=== PATIENT | female | born 1950 | race Caucasian/White ===

== ENCOUNTER 2018-10-01 13:31 | Emergency (ER) | payer OTHER ==
--- NOTE | 2018-10-01 16:14 | EDPHYS ---
Physician Documentation [facility] Name: Idania Gabriel Age: 67 yrs Sex: Female : 1950 Arrival Date: 10/01/2018 Time: 13:32 Bed 14 Private MD: Unknown, Unknown ED Physician Al Godoy HPI: 10/01 16:11 This 67 yrs old Female presents to ER via Ambulatory with complaints of Right pm1 sided facial swelling. Historical: - Allergies: 13:45 Darvocet-N 100; sv - PSHx: 13:45 Hysterectomy; left leg; Cholecystectomy; sv - Immunization history:: Flu vaccine is up to date. - Social history:: Smoking status: Patient uses tobacco products, smokes one-half pack cigarettes per day. ROS: 16:11 Constitutional: Negative for fever, chills, and weight loss, Eyes: Negative for injury, pm1 pain, redness, and discharge, Neck: Negative for injury, pain, and swelling, Cardiovascular: Negative for chest pain, palpitations, and edema, Respiratory: Negative for shortness of breath, cough, wheezing, and pleuritic chest pain, Abdomen/GI: Negative for abdominal pain, nausea, vomiting, diarrhea, and constipation, Back: Negative for injury and pain, MS/Extremity: Negative for injury and deformity. 16:11 Neuro: Negative for headache, weakness, numbness, tingling, and seizure. 16:11 ENT: Negative for ear pain, sinus pain, sore throat, dental pain, difficulty swallowing, difficulty handling secretions, hoarseness. 16:11 Skin: Positive for swelling, of the right zygomatic area. Exam: 16:11 Constitutional: This is a well developed, well nourished patient who is awake, alert, pm1 and in no acute distress. Head/Face: Normocephalic, atraumatic. Eyes: Pupils equal round and reactive to light, extra-ocular motions intact. Lids and lashes normal. Conjunctiva and sclera are non-icteric and not injected. Cornea within normal limits. Periorbital areas with no swelling, redness, or edema. ENT: Nares patent. No nasal discharge, no septal abnormalities noted. Tympanic membranes are normal and external auditory canals are clear. Oropharynx with no redness, swelling, or masses, exudates, or evidence of obstruction, uvula midline. Mucous membranes moist. Neck: Trachea midline, no thyromegaly or masses palpated, and no cervical lymphadenopathy. Supple, full range of motion without nuchal rigidity, or vertebral point tenderness. No Meningismus. Chest/axilla: Normal chest wall appearance and motion. Nontender with no deformity. No lesions are appreciated. Cardiovascular: Regular rate and rhythm with a normal S1 and S2. No gallops, murmurs, or rubs. Normal PMI, no JVD. No pulse deficits. Respiratory: Lungs have equal breath sounds bilaterally, clear to auscultation and percussion. No rales, rhonchi or wheezes noted. No increased work of breathing, no retractions or nasal flaring. Abdomen/GI: Soft, non-tender, with normal bowel sounds. No distension or tympany. No guarding or rebound. No evidence of tenderness throughout. Back: No spinal tenderness. No costovertebral tenderness. Full range of motion. 16:11 MS/ Extremity: Pulses equal, no cyanosis. Neurovascular intact. Full, normal range of motion. 16:11 Skin: Appearance: normal except for affected area, abscess, not appreciated, cellulitis, that is minimal, on the right zygomatic area. 16:11 Neuro: Orientation: is normal, Motor: is normal, moves all fours. Vital Signs: 13:45 BP 176 / 104; Pulse 108; Resp 22; Temp 97.8; Pulse Ox 96% ; Weight 79.38 kg; Height 6 sv ft. 0 in. (182.88 cm); Pain 8/10; 15:27 BP 154 / 84; Pulse 92; Resp 18 S; Pulse Ox 94% on R/A; Pain 10/10; jl7 13:45 Body Mass Index 23.73 (79.38 kg, 182.88 cm) sv MDM: 14:48 Patient medically screened. pm1 16:11 Data reviewed: vital signs. Counseling: I had a detailed discussion with the patient pm1 and/or guardian regarding: the historical points, exam findings, and any diagnostic results supporting the discharge/admit diagnosis, the need for outpatient follow up, to return to the emergency department if symptoms worsen or persist or if there are any questions or concerns that arise at home. Administered Medications: 16:29 Drug: traMADol 50 mg Route: PO; jl7 17:50 Follow up: Response: No adverse reaction; Pain is decreased aa5 17:20 Drug: Clindamycin 600 mg {Note: administered 300mg to right gluteus and 300mg to left aa5 gluteus. .} Route: IM; Site: right gluteus; 17:50 Follow up: Response: No adverse reaction aa5 Disposition: 10/01/18 16:13 Discharged to Home. Impression: Cellulitis of face. - Condition is Stable. - Discharge Instructions: Cellulitis, Adult. - Prescriptions for Clindamycin HCl 300 mg Oral Capsule - take 1 capsule by ORAL route every 6 hours for 10 days; 40 capsule. Tramadol 50 mg Oral Tablet - take 1 tablet by ORAL route every 8 hours as needed; 12 tablet. - Medication Reconciliation Form, Thank You Letter, Antibiotic Education, Prescription Opioid Use form. - Follow up: Emergency Department; When: As needed; Reason: Worsening of condition. Follow up: Private Physician; When: 2 - 3 days; Reason: Recheck today's complaints, Continuance of care, Re-evaluation by your physician. - Problem is new. - Symptoms have improved. Addendum: 10/04/2018 07:45 Co-signature as Attending Physician, Al Godoy MD I agree with the assessment and k dr plan of care. Signatures: Kindra Acuña, RN RN Al Hampton MD MD [facility] Shantell Szymanski RN RN aa5 Carlos Alberto Watson, ANNAMARIA WING MAILER MACHINE OPERATOR pm1 Samuel Brothers RN RN jl7 Corrections: (The following items were deleted from the chart) 10/01 17:52 16:13 10/01/2018 16:13 Discharged to Home. Impression: Cellulitis of face. Condition is aa5 Stable. Forms are Medication Reconciliation Form, Thank You Letter, Antibiotic Education, Prescription Opioid Use. Follow up: Emergency Department; When: As needed; Reason: Worsening of condition. Follow up: Private Physician; When: 2 - 3 days; Reason: Recheck today's complaints, Continuance of care, Re-evaluation by your physician. Problem is new. Symptoms have improved. pm1
--- NOTE | 2018-10-01 16:14 | ER ---
Nurse's Notes [facility] Name: Idania Gabriel Age: 67 yrs Sex: Female : 1950 Arrival Date: 10/01/2018 Time: 13:32 Bed 14 Private MD: Unknown, Unknown Diagnosis: Cellulitis of face Presentation: 10/01 13:43 Presenting complaint: Patient states: right side facial swelling, pressure and pain x 2 sv days. Transition of care: patient was not received from another setting of care. Onset of symptoms was September 29, 2018. Care prior to arrival: Medication(s) given: Tylenol, 1000 mg, 1200. 13:43 Method Of Arrival: Ambulatory sv 13:43 Acuity: DANIELLE 3 sv Triage Assessment: 13:46 General: Appears in no apparent distress. uncomfortable, Behavior is calm, cooperative, sv appropriate for age. Pain: Complains of pain in right eye, right cheek and nose Pain currently is 8 out of 10 on a pain scale. Neuro: Level of Consciousness is awake, alert, obeys commands, Oriented to person, place, time, situation, Gait is steady. Respiratory: Respiratory effort is even, unlabored, Respiratory pattern is regular, symmetrical. Musculoskeletal: Swelling present in right zygomatic area and right side of the nose. Historical: - Allergies: 13:45 Darvocet-N 100; sv - PSHx: 13:45 Hysterectomy; left leg; Cholecystectomy; sv - Immunization history:: Flu vaccine is up to date. - Social history:: Smoking status: Patient uses tobacco products, smokes one-half pack cigarettes per day. Screenin:27 Abuse screen: Denies threats or abuse. Denies injuries from another. Nutritional jl7 screening: No deficits noted. Tuberculosis screening: No symptoms or risk factors identified. Fall Risk None identified. Assessment: 14:00 General: Appears in no apparent distress. uncomfortable, Behavior is calm, cooperative, jl7 appropriate for age. Pain: Complains of pain in right cheek Pain does not radiate. Pain currently is 10 out of 10 on a pain scale. Quality of pain is described as throbbing, Pain began 2-3 days ago. Is continuous. Neuro: Level of Consciousness is awake, alert, obeys commands, Oriented to person, place, time, situation. Cardiovascular: Patient's skin is warm and dry. Respiratory: Airway is patent Respiratory effort is even, unlabored, Respiratory pattern is regular, symmetrical. GI: No signs and/or symptoms were reported involving the gastrointestinal system. : No signs and/or symptoms were reported regarding the genitourinary system. EENT: Nares are clear. Derm: Skin is pink, warm \T\ dry. Musculoskeletal: Swelling present in right cheek. 17:50 Reassessment: Patient is alert, oriented x 3, equal unlabored respirations, skin aa5 warm/dry/pink. Patient states feeling better. Vital Signs: 13:45 BP 176 / 104; Pulse 108; Resp 22; Temp 97.8; Pulse Ox 96% ; Weight 79.38 kg; Height 6 sv ft. 0 in. (182.88 cm); Pain 8/10; 15:27 BP 154 / 84; Pulse 92; Resp 18 S; Pulse Ox 94% on R/A; Pain 10/10; jl7 13:45 Body Mass Index 23.73 (79.38 kg, 182.88 cm) sv ED Course: 13:32 Patient arrived in ED. ag5 13:32 Unknown, Unknown is Private Physician. ag5 13:44 Triage completed. sv 13:46 Arm band placed on Patient placed in waiting room, Patient notified of wait time. sv 14:47 Carlos Alberto Watson NP is PHCP. pm1 14:47 Al Godoy MD is Attending Physician. pm1 14:49 Samuel Brothers RN is Primary Nurse. jl7 15:27 Patient has correct armband on for positive identification. Bed in low position. Call jl7 light in reach. Side rails up X 1. Pulse ox on. NIBP on. Administered Medications: 16:29 Drug: traMADol 50 mg Route: PO; jl7 17:50 Follow up: Response: No adverse reaction; Pain is decreased aa5 17:20 Drug: Clindamycin 600 mg {Note: administered 300mg to right gluteus and 300mg to left aa5 gluteus. .} Route: IM; Site: right gluteus; 17:50 Follow up: Response: No adverse reaction aa5 Outcome: 16:13 Discharge ordered by . pm1 17:50 Discharged to home ambulatory. aa5 17:50 Condition: improved 17:50 Discharge instructions given to patient, Instructed on discharge instructions, follow up and referral plans. medication usage, Demonstrated understanding of instructions, follow-up care, medications, Prescriptions given X 2. 17:52 Patient left the ED. aa5 Signatures: Kindra Acuña RN RN sv Shantell Szymanski RN RN aa5 Carlos Alberto Watson, PATTERN DRUM MAKER PATTERN DRUM MAKER pm1 Samuel Brothers RN RN jl7 Arian Haile ag5 Corrections: (The following items were deleted from the chart) 13:47 13:45 Pulse 108bpm; Resp 22bpm; Pulse Ox 96%; Temp 97.8F; 79.38 kg; Height 6 ft. 0 in.; sv BMI: 23.7; Pain 8/10; sv 18:21 17:50 Condition: stable aa5 aa5
[2018-10-01] MEDS ORDERED: TRAMADOL HCL 50 MG TAB ONE (16:37)
[2018-10-01] MEDS ORDERED: CLINDAMYCIN IV 150 MG/ML (6 mL) VIAL IM ONE (17:00)
== END 2018-10-01 17:52 | disposition home or self-care (01) ==
LOC: ER 13:31
DX: L03.211 Cellulitis of face (principal); F17.210 Nicotine dependence, cigarettes, uncomplicated; Z88.5 Allergy status to narcotic agent
CPT/HCPCS: 96372; 99283

== ENCOUNTER 2022-05-03 20:17 | Emergency (ER) | payer OTHER ==
--- OUTSIDE RECORDS SUMMARY | 2022-05-03 20:23 | XMS REPORT | Continuity of Care Document ---
:1950 [address] [facility] t Address [address] [place] [address] Care Team Providers Name Role Phone Unavailable Unavailable Unavailable Problems This patient has no known problems. Allergies, Adverse Reactions, Alerts This patient has no known allergies or adverse reactions. Medications This patient has no known medications. Procedures This patient has no known procedures. Results Test Description Test Time Test Comments Results Result [facility] e Comments SCR MAMM BILATERAL 2021-03-01 HALLIE CAD DIGITAL 10:11:04 Name: Idania : 1950 Sex: F - SCR MAMM BILATERAL HALLIE CAD DIGITALBILATERAL DIGITAL SCREENING MAMMOGRAM 3D/2D WITH CAD: 02/27/2021LINICAL: Asymptomatic. Digital breast tomosynthesis was performed in addition to routine CC and MLO views. Current mammographic images were evaluated by [employer] CAD (computer-aided detection) software. Comparison is made to exams dated 02/17/2020 mammogram, 03/24/2018 mammogram, and 03/16/2017 mammogram - [facility]. The tissue of both breasts is predominantly fatty. There is a benign calcification in the left breast. No suspicious mass, architectural distortion, malignant type calcification, or lymph node abnormality detected. Breast architecture is stable compared to prior exams.IMPRESSION: BENIGNThere is no mammographic evidence of malignancy. Resume annual screening mammography in one year. Cade Fowler M.D. ss/penrad:03/01/2021 10:11:04 Soccer Commentator: Jaida NGUYEN, [facility] sent: BIRADS 1-2 Normal Mammogram BI-RADS: 2 Benign SCR MAMM BILATERAL 2020-02-17 - SCR MAMM BILATERAL HALLIE CAD DIGITAL 13:00:55 HALLIE CAD DIGITALBILATERAL DIGITAL SCREENING MAMMOGRAM 3D/2D WITH CAD: 02/17/2020CLINICAL: Asymptomatic. Digital breast tomosynthesis was performed in addition to routine CC and MLO views. Current mammographic images were evaluated by either a [employer] M-Vu or a [employer] Image[employer] Media Groupcker CAD (computer aided detection system). Comparison is made to exams dated 03/24/2018 mammogram, 03/16/2017 mammogram, and 03/19/2016 mammogram - [facility] The tissue of both breasts is predominantly fatty. There is a benign calcification in the left breast. No suspicious mass, architectural distortion, malignant type calcification, or lymph node abnormality detected. Breast architecture is stable compared to prior exams.IMPRESSION: BENIGNThere is no mammographic evidence of malignancy. Resume annual screening mammography in one year. Cade Fowler M.D. ss/penrad:02/17/2020 13:00:55 Soccer Commentator: Johanna NGUYEN [facility] sent: BIRADS 1-2 Normal Mammogram BI-RADS: 2 Benign
[2022-05-03] MEDS ORDERED: PROMETHAZINE INJ 25 MG/ML AMP ONE (21:32)
[2022-05-03] MEDS ORDERED: NA CHLORIDE 0.9% 1,000 ML ONE (21:32)
[2022-05-03] MEDS ORDERED: FAMOTIDINE 20 MG/2 ML VIAL IV ONE (21:32)
[2022-05-03] MEDS ORDERED: FENTANYL CITR 100 MCG/2 ML ONE (21:39)
--- NOTE | 2022-05-03 22:04 | RAD REPORT ---
EXAM DESCRIPTION: US - Abdomen Exam Limited - 05/03/2022 9:40 pm CLINICAL HISTORY: ABD PAIN COMPARISON: Abdomen Pelvis W Contrast dated 10/18/2016 FINDINGS: Cholecystectomy. Common bile duct is normal caliber measuring 3 millimeters. The liver demonstrates no findings of intrahepatic biliary dilatation. Increased echogenicity of the liver. IMPRESSION: Cholecystectomy. No biliary ductal dilatation. Hepatic steatosis.
[2022-05-03 22:06] LABS: Absolute Lymphocytes (CBC) 2.6 K/uL (0.7-4.9); Hematocrit 45.5 % (36.0-45.0); Lymphocytes % 21.4 % (15.3-44.8); MCV 93.2 fL (80-100); MPV 8.8 fL (7.6-11.3); RBC Red Blood Cell Count 4.88 M/uL (3.86-4.86)
[2022-05-03 22:17] LABS: SARS-CoV-2 Antigen Rapid Res Positive (Negative)
[2022-05-03 22:23] LABS: Albumin 3.7 g/dL (3.4-5.0); Bilirubin Total 0.5 mg/dL (0.2-1.0); Potassium 4.2 mmol/L (3.5-5.1); Protein, Total 8.1 g/dL (6.4-8.2)
--- NOTE | 2022-05-03 22:35 | ER ---
Nurse's Notes [facility] Name: Idania Faulkton Age: 71 yrs Sex: Female : 1950 Arrival Date: 05/03/2022 Time: 20:22 Bed 7 Private MD: Diagnosis: SARS-associated coronavirus as the cause of diseases classified elsewhere;Nausea with vomiting, unspecified Presentation: 05/03 20:27 Chief complaint: Vomiting bile since this morning, abdominal pain that radiates to back hb tonight. Coronavirus screen: At this time, the client does not indicate any symptoms associated with coronavirus-19. Ebola Screen: No symptoms or risks identified at this time. Initial Sepsis Screen: Does the patient meet any 2 criteria? No. Patient's initial sepsis screen is negative. Does the patient have a suspected source of infection? No. Patient's initial sepsis screen is negative. Risk Assessment: Do you want to hurt yourself or someone else? Patient reports no desire to harm self or others. Onset of symptoms was May 03, 2022. 20:27 Method Of Arrival: Ambulatory hb 20:27 Acuity: DANIELLE 3 hb Triage Assessment: 21:56 General: Appears uncomfortable, Behavior is cooperative, anxious. GI: Reports lower aa9 abdominal pain, nausea, vomiting, since 10 am this morning. Historical: - Allergies: 20:28 Darvocet-N 100; hb - Immunization history:: Client reports receiving the 2nd dose of the Covid vaccine. - Social history:: Smoking status: Patient reports the use of cigarette tobacco products, smokes one-half pack cigarettes per day. Screenin:55 Abuse screen: Denies threats or abuse. Denies injuries from another. Nutritional aa9 screening: No deficits noted. Tuberculosis screening: No symptoms or risk factors identified. Fall Risk None identified. Assessment: 21:30 Pain: Complains of pain in right upper quadrant and left upper quadrant Pain currently aa9 is 8 out of 10 on a pain scale. Also complains of nausea. GI: Abdomen is flat. 22:31 Reassessment: Patient and/or family updated on plan of care and expected duration. Pain aa9 level reassessed. Patient is alert, oriented x 3, equal unlabored respirations, skin warm/dry/pink. Vital Signs: 20:27 BP 156 / 88; Pulse 107; Resp 20; Temp 97.7; Pulse Ox 95% on R/A; Weight 80.29 kg; hb Height 6 ft. (182.88 cm); Pain 7/10; 22:10 BP 172 / 73; Pulse 76; Resp 16 S; Pulse Ox 97% on R/A; aa9 22:46 BP 151 / 88; Pulse 75; Resp 16 S; Pulse Ox 99% on R/A; Pain 0/10; aa9 20:27 Body Mass Index 24.01 (80.29 kg, 182.88 cm) hb ED Course: 20:22 Patient arrived in ED. ja2 20:25 [facility]ley [facility]C [facility] snw 20:25 Fan Gastelum MD is Attending Physician. snw 20:28 Triage completed. hb 20:28 Arm band placed on. hb 20:42 Nika Vega, ANGÉLICA is Primary Nurse. kd3 21:40 Inserted saline lock: 22 gauge in left hand, using aseptic technique. Blood collected. aa9 21:42 Abdomen Limited US In Process Unspecified. EDMS 21:56 Patient has correct armband on for positive identification. Side rails up X2. Adult w/ aa9 patient. Warm blanket given. 22:11 SARS RAPID Sent. aa9 22:31 No provider procedures requiring assistance completed. aa9 22:54 IV discontinued, intact, bleeding controlled, No redness/swelling at site. Pressure aa9 dressing applied. Administered Medications: 21:45 Drug: Phenergan (promethazine) 12.5 mg Route: IM; Site: left deltoid; aa9 22:11 Follow up: Response: No adverse reaction aa9 21:45 Drug: fentaNYL (PF) 25 mcg Route: IVP; Site: left hand; aa9 22:11 Follow up: Response: No adverse reaction; Pain is decreased; RASS: Alert and Calm (0) aa9 21:53 Drug: NS 0.9% 1000 ml Route: IV; Rate: 1 bolus; Site: left hand; aa9 22:54 Follow up: Response: No adverse reaction; IV Status: Completed infusion; IV Intake: aa9 1000ml 21:53 Drug: Pepcid (famotidine) 20 mg Route: IVP; Site: left hand; aa9 22:11 Follow up: Response: No adverse reaction aa9 Medication: 22:54 VIS not applicable for this client. aa9 Intake: :54 IV: 1000ml; Total: 1000ml. aa9 Outcome: 22:35 Discharge ordered by . sunitha :53 Discharged to home ambulatory, with significant other. aa9 :53 Condition: stable 22:53 Discharge instructions given to patient, significant other, Instructed on discharge instructions, follow up and referral plans. Demonstrated understanding of instructions, follow-up care, medications, Prescriptions given X 2. :55 Patient left the ED. aa9 Signatures: Dispatcher [employer] EDMS Cecy Presley, DRUG SAFETY SPECIALIST-C DRUG SAFETY SPECIALIST-Csnw Heidy Frazier, RN RN Linda Santa2 Nika Vega RN RN kd3 Maira Bridges, ANGÉLICA RN aa9 Corrections: (The following items were deleted from the chart) :55 21:54 Pain: Complains of pain in right upper quadrant and left upper quadrant Pain aa9 currently is 8 out of 10 on a pain scale. Also complains of nausea, aa9 21:54 GI: Abdomen is flat, aa9 aa9
--- NOTE | 2022-05-03 22:35 | EDPHYS ---
Physician Documentation [facility] Name: Idania Gabriel Age: 71 yrs Sex: Female : 1950 Arrival Date: 05/03/2022 Time: 20:22 Bed 7 Private MD: ED Physician Fan Gastelum HPI: 05/03 21:05 This 71 yrs old Female presents to ER via Ambulatory with complaints of Vomiting, snw Abdominal Pain. 21:05 The patient presents to the emergency department with nausea, vomiting, that is snw continuous, described as bilious. Onset: The symptoms/episode began/occurred suddenly, this morning. Possible causes: unknown. The symptoms are aggravated by nothing. The symptoms are alleviated by nothing. Severity of symptoms: At their worst the symptoms were moderate severe. The patient has not experienced similar symptoms in the past. It is unknown whether or not the patient has recently seen a physician. Historical: - Allergies: 20:28 Darvocet-N 100; hb - Immunization history:: Client reports receiving the 2nd dose of the Covid vaccine. - Social history:: Smoking status: Patient reports the use of cigarette tobacco products, smokes one-half pack cigarettes per day. ROS: 21:04 Constitutional: Negative for fever, chills, and weight loss, Eyes: Negative for injury, snw pain, redness, and discharge, ENT: Negative for injury, pain, and discharge, Neck: Negative for injury, pain, and swelling, Cardiovascular: Negative for chest pain, palpitations, and edema, Respiratory: Negative for shortness of breath, cough, wheezing, and pleuritic chest pain, Back: soreness around upper waist : Negative for injury, bleeding, discharge, and swelling, MS/Extremity: Negative for injury and deformity, Skin: Negative for injury, rash, and discoloration, Neuro: Negative for headache, weakness, numbness, tingling, and seizure, Psych: Negative for depression, anxiety, suicide ideation, homicidal ideation, and hallucinations. 21:04 Abdomen/GI: Positive for nausea, vomiting, all day, bile, no blood. Exam: 21:03 Constitutional: This is a well developed, well nourished patient who is awake, alert, snw and in no acute distress. Head/Face: Normocephalic, atraumatic. Eyes: Pupils equal round and reactive to light, extra-ocular motions intact. Lids and lashes normal. Conjunctiva and sclera are non-icteric and not injected. Cornea within normal limits. Periorbital areas with no swelling, redness, or edema. ENT: Nares patent. No nasal discharge, no septal abnormalities noted. Tympanic membranes are normal and external auditory canals are clear. Oropharynx with no redness, swelling, or masses, exudates, or evidence of obstruction, uvula midline. Mucous membranes moist. Neck: Trachea midline, no thyromegaly or masses palpated, and no cervical lymphadenopathy. Supple, full range of motion without nuchal rigidity, or vertebral point tenderness. No Meningismus. Chest/axilla: Normal chest wall appearance and motion. Nontender with no deformity. No lesions are appreciated. 21:03 Respiratory: Lungs have equal breath sounds bilaterally, clear to auscultation and percussion. No rales, rhonchi or wheezes noted. No increased work of breathing, no retractions or nasal flaring. Back: No spinal tenderness. No costovertebral tenderness. Full range of motion. MS/ Extremity: Pulses equal, no cyanosis. Neurovascular intact. Full, normal range of motion. Neuro: Awake and alert, GCS 15, oriented to person, place, time, and situation. Cranial nerves II-XII grossly intact. Motor strength 5/5 in all extremities. Sensory grossly intact. Cerebellar exam normal. Normal gait. Psych: Awake, alert, with orientation to person, place and time. Behavior, mood, and affect are within normal limits. 21:03 Cardiovascular: Rate: tachycardic, Rhythm: regular, Pulses: no pulse deficits are appreciated. 21:03 Abdomen/GI: Inspection: abdomen appears normal, Bowel sounds: normal, Palpation: moderate abdominal tenderness, in the epigastric area. 21:03 Skin: Appearance: Temperature: normal temperature, Moisture: dry. Vital Signs: 20:27 BP 156 / 88; Pulse 107; Resp 20; Temp 97.7; Pulse Ox 95% on R/A; Weight 80.29 kg; hb Height 6 ft. (182.88 cm); Pain 7/10; 22:10 BP 172 / 73; Pulse 76; Resp 16 S; Pulse Ox 97% on R/A; aa9 22:46 BP 151 / 88; Pulse 75; Resp 16 S; Pulse Ox 99% on R/A; Pain 0/10; aa9 20:27 Body Mass Index 24.01 (80.29 kg, 182.88 cm) hb MDM: 20:35 Patient medically screened. snw 22:35 Data reviewed: vital signs, nurses notes. Data interpreted: Pulse oximetry: on room air snw is 97 %. Interpretation: normal. Counseling: I had a detailed discussion with the patient and/or guardian regarding: the historical points, exam findings, and any diagnostic results supporting the discharge/admit diagnosis, lab results, radiology results, the need for outpatient follow up, to return to the emergency department if symptoms worsen or persist or if there are any questions or concerns that arise at home. Response to treatment: the patient's symptoms have markedly improved after treatment. Special discussion: I have referred the patient to see his PCP for further evaluation of high blood pressure. Based on the history and exam findings, there is no indication for further emergent testing or inpatient evaluation. I discussed with the patient/guardian the need to see the primary care provider for further evaluation of the symptoms. 05/03 20:42 Order name: CBC with Diff; Complete Time: 22:08 snw 05/03 20:42 Order name: CMP; Complete Time: 22:27 snw 05/03 20:42 Order name: Lipase; Complete Time: 22:27 snw 05/03 20:42 Order name: Abdomen Limited US; Complete Time: 22:05 snw 05/03 21:06 Order name: SARS RAPID; Complete Time: 22:27 snw 05/03 20:42 Order name: IV Saline Lock; Complete Time: 21:45 snw 05/03 20:42 Order name: Labs collected and sent; Complete Time: 21:45 snw Administered Medications: 21:45 Drug: Phenergan (promethazine) 12.5 mg Route: IM; Site: left deltoid; aa9 22:11 Follow up: Response: No adverse reaction aa9 21:45 Drug: fentaNYL (PF) 25 mcg Route: IVP; Site: left hand; aa9 22:11 Follow up: Response: No adverse reaction; Pain is decreased; RASS: Alert and Calm (0) aa9 21:53 Drug: NS 0.9% 1000 ml Route: IV; Rate: 1 bolus; Site: left hand; aa9 22:54 Follow up: Response: No adverse reaction; IV Status: Completed infusion; IV Intake: aa9 1000ml 21:53 Drug: Pepcid (famotidine) 20 mg Route: IVP; Site: left hand; aa9 22:11 Follow up: Response: No adverse reaction aa9 Disposition Summary: 05/03/22 22:35 Discharge Ordered Location: Home snw Condition: Stable snw Diagnosis - SARS-associated coronavirus as the cause of diseases classified elsewhere snw - Nausea with vomiting, unspecified snw Followup: snw - With: Private Physician - When: 2 - 3 days - Reason: Recheck today's complaints, Continuance of care, Re-evaluation by your physician Followup: snw - With: Emergency Department - When: As needed - Reason: Worsening of condition Discharge Instructions: - Discharge Summary Sheet snw - Aspirin and Your Heart snw - COVID-19 snw - 10 Things You Can Do to Manage Your COVID-19 Symptoms at Home - [facility] snw - COVID-19: Quarantine vs. Isolation - [facility] snw - Prevent the Spread of COVID-19 if You Are Sick - [facility] snw Forms: - Medication Reconciliation Form snw - Thank You Letter snw - Antibiotic Education snw - Prescription Opioid Use snw Prescriptions: - promethazine 25 mg Oral Tablet - take 1 tablet by ORAL route every 6 hours As needed; 20 tablet; Refills: 0, snw Product Selection Permitted Addendum: 05/06/2022 07:56 Co-signature as Attending Physician, Fan Gastelum MD. r n Signatures: Dispatcher [employer] Cecy Forrester, GRANT SPECIALIST-C GRANT SPECIALIST-Csnw Fan Gastelum MD MD rn Baxter, Heather, RN RN Maira Bridges RN RN aa9
[2022-05-04 03:17] VITALS: TEMP 97.7
[2022-05-04 03:26] VITALS: BP 151/88; O2SAT 99
== END 2022-05-03 22:55 | disposition home or self-care (01) ==
LOC: ER 20:17
DX: U07.1 COVID-19 (principal); F17.210 Nicotine dependence, cigarettes, uncomplicated; Z88.5 Allergy status to narcotic agent
CPT/HCPCS: 96361; 85025; 36415; 83690; 80053; 76705; 96375; 96372; 96374; 99284; 87811; J2550; J3010; J7030